=== PATIENT | male | born 1950 | race Caucasian/White ===

== ENCOUNTER 2017-02-01 11:45 | Emergency (ER) | payer OTHER ==
[~2017-02-01] VITALS: Ht 182.9 cm; Wt 86.4 kg
[2017-02-01 11:47] VITALS: BP 185/108; PULSE 67; RESP 19; O2SAT 97
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
[2017-02-01 13:21] VITALS: BP 151/97; PULSE 73; RESP 18
== END 2017-02-01 13:26 | disposition home or self-care (01) ==
LOC: SED 11:45
DX: R07.81 Pleurodynia (principal); Y04.8XXA Assault by other bodily force, initial encounter; Y93.89 Activity, other specified; Y99.8 Other external cause status; Y92.018 Other place in single-family (private) house as the place of occurrence of the external cause
CPT/HCPCS: 71111; 96372; 99284; J1885